=== PATIENT | male | born 1960 | race African-American/Black ===

== ENCOUNTER 2023-03-21 10:55 | Inpatient (IN) | payer OTHER ==
[2023-03-21 11:40] VITALS: BMI 22.9
[2023-03-21] MEDS ORDERED: POLYETHYLENE GLYCOL (HEALTHYLAX) 3350 17 GM PACKET PO PRN (12:08)
[2023-03-21] MEDS ORDERED: LOPERAMIDE HCL 2 MG CAPSULE PO PRN (12:08)
[2023-03-21] MEDS ORDERED: BENZOCAINE/MENTHOL (CHLORASEPTIC ) LOZENGE MM PRN (12:08)
[2023-03-21] MEDS ORDERED: BISMUTH SUBSALICYLATE 262 MG/15 ML BTL PO PRN (12:08)
[2023-03-21] MEDS ORDERED: NALOXONE HCL (KLOXXADO) 8 MG SPRAY NS PRN (12:08)
[2023-03-21] MEDS ORDERED: BENZONATATE 200 MG CAPSULE PO PRN (12:08)
[2023-03-21] MEDS ORDERED: ONDANSETRON *ODT* 4 MG TABLET SL PRN (12:08)
[2023-03-21] MEDS ORDERED: IBUPROFEN 400 MG TABLET (FP) PO PRN (12:08)
[2023-03-21] MEDS ORDERED: DICYCLOMINE HCL 10 MG CAPSULE PO PRN (12:08)
[2023-03-21] MEDS ORDERED: guaiFENesin 600 MG TABLET.ER (FP) PO PRN (12:08)
[2023-03-21] MEDS ORDERED: IBUPROFEN 600 MG TABLET (FP) PO PRN (12:08)
[2023-03-21] MEDS ORDERED: MAG HYDROX/AL HYDROX/SIMETH 30 ML UNIT-DOSE CUP PO PRN (12:08)
[2023-03-21] MEDS ORDERED: NALOXONE HCL 0.4 MG/ML VIAL IM PRN (12:08)
[2023-03-21] MEDS ORDERED: MAGNESIUM HYDROX 2400MG/30ML ORAL SUSPENSION 30 ML CUP PO PRN (12:08)
[2023-03-21] MEDS: NICOTINE 7 MG/24 HOURS TOPICAL PATCH TD SCH (12:41)
[2023-03-21] MEDS: ACETAMINOPHEN 325 MG TABLET (FP) PO PRN (18:20)
[2023-03-21] MEDS: hydrOXYzine PAMOATE 25 MG CAPSULE (FP) PO PRN (18:20)
[2023-03-21] MEDS: METHOCARBAMOL 500 MG TABLET PO PRN (22:18)
[2023-03-21] MEDS: MELATONIN 5 MG TABLETS PO SCH (22:18)
[2023-03-21] MEDS: FAMOTIDINE 20 MG TABLET PO SCH (22:18)
[2023-03-21] MEDS: THIAMINE HCL 100 MG TABLET (FP) PO SCH (22:19)
[2023-03-22] MEDS: NICOTINE 7 MG/24 HOURS TOPICAL PATCH TD SCH (10:25)
[2023-03-22] MEDS: METHOCARBAMOL 500 MG TABLET PO PRN ×2 (10:26→17:37)
[2023-03-22] MEDS: hydrOXYzine PAMOATE 25 MG CAPSULE (FP) PO PRN ×2 (10:26→17:37)
[2023-03-22] MEDS: PRENATAL VITAMINS W/ FOLIC ACID TABLET (FP) PO SCH (10:26)
[2023-03-22] MEDS: FAMOTIDINE 20 MG TABLET PO SCH ×2 (10:26→22:14)
[2023-03-22 11:09] LABS: HEMATOCRIT 36.7 % (35.4-49); HEMOGLOBIN 12.6 GM/dL (11.7-16.9); MCH 33.2 pg (25.7-33.7); MCHC 34.3 g/dl (32.0-35.9); MEAN CELL VOLUME 96.8 fl (80-96); MEAN PLT VOLUME 9.1 fl (7.5-11.1); PLATELET COUNT 235 10^3/uL (134-434); RBC 3.79 M/mm3 (4.00-5.60); RDW 14.3 % (11.9-15.9); WHITE BLOOD COUNT 4.2 K/mm3 (4.0-10.0)
[2023-03-22 11:33] LABS: POTASSIUM 4.1 mmol/L (3.5-5.1)
[2023-03-22 11:35] LABS: CALCIUM 9.2 mg/dL (8.5-10.1)
[2023-03-22 11:36] LABS: ALBUMIN 3.6 g/dl (3.4-5.0); BLOOD UREA NITROGEN 9.6 mg/dL (7-18)
[2023-03-22 11:39] LABS: CREATININE 0.8 mg/dL (0.55-1.3)
[2023-03-22 11:40] LABS: BILIRUBIN,TOTAL 0.4 mg/dL (0.2-1)
[2023-03-22 11:41] LABS: TOT PROT 7.5 g/dl (6.4-8.2)
[2023-03-22] MEDS: THIAMINE HCL 100 MG TABLET (FP) PO SCH (22:14)
[2023-03-22] MEDS: MELATONIN 5 MG TABLETS PO SCH (22:14)
[2023-03-22] MEDS: ACETAMINOPHEN 325 MG TABLET (FP) PO PRN (22:18)
[2023-03-22] MEDS ORDERED: cloNIDine HCL 0.1 MG TABLET PO ONE (22:37)
[2023-03-23 09:21] VITALS: BP 134/77; PULSE 93; RESP 18; TEMP 97.8
[2023-03-23] MEDS ORDERED: levETIRAcetam 500 MG TABLET (FP) PO SCH (10:00)
[2023-03-23] MEDS: PRENATAL VITAMINS W/ FOLIC ACID TABLET (FP) PO SCH (10:09)
[2023-03-23] MEDS: NICOTINE 7 MG/24 HOURS TOPICAL PATCH TD SCH (10:09)
[2023-03-23] MEDS: FAMOTIDINE 20 MG TABLET PO SCH (10:09)
[2023-03-23] MEDS ORDERED: BICTEGRAV/EMTRICIT/TENOFOV (BIKTARVY) 50-200-25 MG TABLET PO SCH (12:00)
== END 2023-03-23 11:05 | disposition home or self-care (01) | DRG 775 ==
LOC: YASAS 10:55 → Y6N 12:56
PROVIDERS: ADMIT Allergy & Immunology; ATTEND Allergy & Immunology
PROC: HZ2ZZZZ Detoxification Services for Substance Abuse Treatment (ICD-10-PCS; principal; 2023-03-21)
DX: F10.20 Alcohol dependence, uncomplicated (principal); F17.210 Nicotine dependence, cigarettes, uncomplicated; F10.282 Alcohol dependence with alcohol-induced sleep disorder; Z21 Asymptomatic human immunodeficiency virus [HIV] infection status; I10 Essential (primary) hypertension; K21.9 Gastro-esophageal reflux disease without esophagitis; M54.50 Low back pain, unspecified; G89.29 Other chronic pain; M21.371 Foot drop, right foot; N40.0 Benign prostatic hyperplasia without lower urinary tract symptoms; Z99.89 Dependence on other enabling machines and devices; Z86.69 Personal history of other diseases of the nervous system and sense organs; Z88.0 Allergy status to penicillin
CPT/HCPCS: 36415; 80053; 80307; 85027; 86780; 87635; 93005; 93010

== ENCOUNTER 2023-12-26 11:14 | Inpatient (IN) | payer OTHER ==
[2023-12-26 12:13] VITALS: BMI 22.1
[2023-12-26] MEDS ORDERED: BISMUTH SUBSALICYLATE 262 MG/15 ML BTL PO PRN (12:52)
[2023-12-26] MEDS ORDERED: NALOXONE (NYS OPIOID OVERDOSE PROGRAM) 4 MG/0.1 ML SPRAY NS PRN (12:52)
[2023-12-26] MEDS ORDERED: hydrOXYzine PAMOATE 25 MG CAPSULE (FP) PO PRN (12:52)
[2023-12-26] MEDS ORDERED: DICYCLOMINE HCL 10 MG CAPSULE PO PRN (12:52)
[2023-12-26] MEDS ORDERED: ONDANSETRON *ODT* 4 MG TABLET SL PRN (12:52)
[2023-12-26] MEDS ORDERED: MAG HYDROX/AL HYDROX/SIMETH 30 ML UNIT-DOSE CUP PO PRN (12:52)
[2023-12-26] MEDS ORDERED: LORazepam 1 MG TABLET PO PRN (12:52)
[2023-12-26] MEDS ORDERED: POLYETHYLENE GLYCOL (HEALTHYLAX) 3350 17 GM PACKET PO PRN (12:52)
[2023-12-26] MEDS ORDERED: MAGNESIUM HYDROX 2400MG/30ML ORAL SUSPENSION 30 ML CUP PO PRN (12:52)
[2023-12-26] MEDS ORDERED: IBUPROFEN 400 MG TABLET (FP) PO PRN (12:52)
[2023-12-26] MEDS ORDERED: NALOXONE (NARCAN) HCL 4 MG/0.1 ML SPRAY NS PRN (12:52)
[2023-12-26] MEDS ORDERED: METHOCARBAMOL 500 MG TABLET PO PRN (12:52)
[2023-12-26] MEDS ORDERED: IBUPROFEN 600 MG TABLET (FP) PO PRN (12:52)
[2023-12-26] MEDS ORDERED: BENZONATATE 200 MG CAPSULE PO PRN (12:52)
[2023-12-26] MEDS ORDERED: BENZOCAINE/MENTHOL (CHLORASEPTIC ) LOZENGE MM PRN (12:52)
[2023-12-26] MEDS: NICOTINE 14 MG/24 HOURS TOPICAL PATCH TD SCH (13:59)
[2023-12-26] MEDS ORDERED: PRENATAL VITAMINS W/ FOLIC ACID TABLET (FP) PO ONE (14:02)
[2023-12-26] MEDS: PRENATAL VITAMINS W/ FOLIC ACID TABLET (FP) PO SCH (14:05)
[2023-12-26] MEDS: ACETAMINOPHEN 325 MG TABLET (FP) PO PRN (14:39)
[2023-12-26] MEDS: LORazepam 2 MG TABLET PO SCH (17:24)
[2023-12-26] MEDS: levETIRAcetam 500 MG TABLET (FP) PO SCH (22:17)
[2023-12-26] MEDS: THIAMINE 100 MG TABLET PO SCH (22:18)
[2023-12-26] MEDS: LOPERAMIDE HCL 2 MG CAPSULE PO PRN (22:18)
[2023-12-26] MEDS: MELATONIN 5 MG TABLETS PO SCH (22:18)
[2023-12-27] MEDS: BICTEGRAV/EMTRICIT/TENOFOV (BIKTARVY) 50-200-25 MG TABLET PO SCH (07:06)
[2023-12-27 12:03] LABS: HEMATOCRIT 36.4 % (35.4-49); HEMOGLOBIN 12.3 GM/dL (11.7-16.9); MCH 33.7 pg (25.7-33.7); MCHC 33.8 g/dl (32.0-35.9); MEAN CELL VOLUME 99.7 fl (80-96); MEAN PLT VOLUME 8.7 fl (7.5-11.1); PLATELET COUNT 261 10^3/uL (134-434); RBC 3.65 M/mm3 (4.00-5.60)
[2023-12-27 12:28] LABS: CHLORIDE 102 mmol/L (98-107); POTASSIUM 3.4 mmol/L (3.5-5.1); SODIUM 137 mmol/L (136-145)
[2023-12-27 12:41] LABS: CALCIUM 8.1 mg/dL (8.5-10.1)
[2023-12-27 12:42] LABS: ALBUMIN 2.8 g/dl (3.4-5.0); ANION GAP 8 mmol/L (4-13); BLOOD UREA NITROGEN 7.4 mg/dL (7-18); CO2 27 mmol/L (21-32); GLUCOSE,RANDOM 86 mg/dL (74-106)
[2023-12-27 12:44] LABS: CREATININE 0.7 mg/dL (0.55-1.3); SGOT/AST 109 U/L (15-37); SGPT/ALT 32 U/L (13-61)
[2023-12-27 12:46] LABS: BILIRUBIN,TOTAL 0.5 mg/dL (0.2-1); TOT PROT 6.5 g/dl (6.4-8.2)
[2023-12-27 12:47] LABS: ALK PHOS 155 U/L (45-117)
[2023-12-27] MEDS: POTASSIUM CHLORIDE ORAL LIQUID 20 MEQ/15 ML PO ONE ×2 (15:00→16:32)
[2023-12-27] MEDS: guaiFENesin 600 MG TABLET.ER (FP) PO PRN (22:15)
[2023-12-28] MEDS: LORazepam 1 MG TABLET PO SCH (04:31)
[2023-12-29] MEDS ORDERED: LORazepam 0.5 MG TABLET PO PRN
[2023-12-29] MEDS: LORazepam 0.5 MG TABLET PO SCH (05:48)
[2023-12-29] MEDS: guaiFENesin 600 MG TABLET.ER (FP) PO SCH (10:08)
[2023-12-29] MEDS: SULFAMETHOXAZOLE/TRIMETHOPRIM 800MG/160MG D.S. TABLET PO ONE (15:15)
[2023-12-30] MEDS: LORazepam 0.5 MG TABLET PO ONE (05:37)
[2023-12-30 08:47] VITALS: BP 113/67; PULSE 101; RESP 18; TEMP 97.7
[2023-12-30] MEDS: SULFAMETHOXAZOLE/TRIMETHOPRIM 800MG/160MG D.S. TABLET PO SCH (11:01)
== END 2023-12-30 08:52 | disposition home or self-care (01) | DRG 775 ==
LOC: YASAS 11:14 → Y3N 13:57
PROVIDERS: ADMIT Allergy & Immunology; ATTEND Surgery
PROC: HZ2ZZZZ Detoxification Services for Substance Abuse Treatment (ICD-10-PCS; principal; 2023-12-26)
DX: F10.230 Alcohol dependence with withdrawal, uncomplicated (principal); F17.210 Nicotine dependence, cigarettes, uncomplicated; Z21 Asymptomatic human immunodeficiency virus [HIV] infection status; G40.909 Epilepsy, unspecified, not intractable, without status epilepticus; K21.9 Gastro-esophageal reflux disease without esophagitis; M54.50 Low back pain, unspecified; G89.29 Other chronic pain; Z79.899 Other long term (current) drug therapy; Z88.0 Allergy status to penicillin
CPT/HCPCS: 36415; 80053; 80305; 80307; 84132; 85027; 86780; 93005; 93010